=== PATIENT | female | born 1940 | race Caucasian/White ===

== ENCOUNTER 2019-08-07 13:20 | Day surgery (SDC) | payer MEDICARE, BC ==
[~2019-08-07] VITALS: Ht 165.1 cm; Wt 87.8 kg
[~2019-08-07 13:20] MED LIST: K and/or MAG REPLACEMENT MC SCH
[2019-08-07 13:55] VITALS: BP 136/72
[2019-08-07] MEDS ORDERED: CLIN150C2 PO (14:14)
[2019-08-07] MEDS ORDERED: ASPI-611 PO (14:14)
[2019-08-07] MEDS ORDERED: FISH OIL (14:14)
[2019-08-07] MEDS ORDERED: MAGNESIUM (14:14)
[2019-08-07] MEDS ORDERED: TRAZ-251 PO (14:14)
[2019-08-07] MEDS ORDERED: SIMV-45 PO (14:14)
[2019-08-07] MEDS ORDERED: HYDR25TA4 PO (14:14)
[2019-08-07] MEDS ORDERED: NITR0.4T48 SL (14:14)
[2019-08-07] MEDS ORDERED: CITA20TA17 (14:14)
[2019-08-07] MEDS ORDERED: FURO20TA4 PO (14:14)
[2019-08-07] MEDS ORDERED: ASCO500C15 PO (14:14)
[2019-08-07] MEDS ORDERED: ATEN50TA PO (14:14)
[2019-08-07] MEDS ORDERED: DOXY-1 (14:14)
[2019-08-07] MEDS ORDERED: MELA5TAB21 (14:14)
[2019-08-07] MEDS ORDERED: POTA20TA10 PO (14:14)
[2019-08-07] MEDS ORDERED: MULT-1085 PO (14:14)
[2019-08-07] MEDS ORDERED: CARV3.122 PO (14:14)
[2019-08-07 14:17] LABS: BASOPHILS % (AUTO) 0.6 % (0-1); EOSINOPHILS # (AUTO) 0.1 X10'3 (0-0.9); EOSINOPHILS % (AUTO) 2.3 % (0-6); HEMATOCRIT 35.6 % (35.0-45.0); HEMOGLOBIN 11.6 g/dl (12.0-16.0); LYMPHOCYTES # (AUTO) 1.3 X10'3 (1.1-4.8); LYMPHOCYTES % (AUTO) 22.5 % (21-51); MEAN CORPUSCULAR HEMOGLOBIN 27.7 PG (27.0-31.0); MEAN CORPUSCULAR HGB CONC 32.6 g/dL (33.0-36.5); MEAN PLATELET VOLUME 8.2 FL (7.4-10.4); MONOCYTES # (AUTO) 0.7 X10'3 (0-0.9); MONOCYTES % (AUTO) 11.8 % (2-12); NEUTROPHILS # (AUTO) 3.7 X10'3 (1.8-7.7); NEUTROPHILS % (AUTO) 62.8 % (42-75); PLATELET COUNT 124 X10'3 (140-440); RED BLOOD COUNT 4.19 X10'6 (4.20-5.60); RED CELL DISTRIBUTION WIDTH 18.7 % (11.5-14.5); WHITE BLOOD COUNT 5.9 X10'3 (4.5-11.0)
[2019-08-07 14:28] LABS: ALBUMIN 3.5 G/DL (3.4-5.0); ANION GAP 8 (8-16); BLOOD UREA NITROGEN 42 MG/DL (7-18); BUN/CREATININE RATIO 27.1 (6.6-38.0); CALCIUM 8.9 MG/DL (8.5-10.1); CHLORIDE 100 MMOL/L (99-107); CREATININE 1.55 MG/DL (0.40-0.90); GLUCOSE 86 MG/DL (70-104); MAGNESIUM 2.3 MG/DL (1.5-2.4); SODIUM 140 MMOL/L (135-145); TOTAL CARBON DIOXIDE 31.7 MMOL/L (24-32); eGFR 32 ML/MIN
[2019-08-07 14:34] LABS: ANISOCYTOSIS 2+; ELLIPTOCYTES 1+; PLATELET ESTIMATE DECREASED
[2019-08-07 14:35] LABS: BURR CELLS FEW
[2019-08-07 14:37] LABS: POTASSIUM 2.9 MMOL/L (3.5-5.1)
[2019-08-07] MEDS ORDERED: potassium Cl 20 mEq SR tablet PO PRN ×2 (14:40)
[2019-08-07] MEDS ORDERED: potassium CL 10mEq/100ml bag 100 ML IV PRN ×2 (14:40)
[2019-08-07] MEDS ORDERED: LIDOcaine 1% W/epiNEPHrine 1:100,000 20ml vial ONE ×2 (15:55→16:40)
[2019-08-07] MEDS ORDERED: midazolam 2 mg/2 ml injection ONE ×4 (15:55→17:23)
[2019-08-07] MEDS ORDERED: fentaNYL/PF 50MCG/1 ML 2ML syringe ONE (15:55)
[2019-08-07] MEDS ORDERED: vancomycin 1,000mg inj ONE (15:55)
[2019-08-07] MEDS ORDERED: ceFAZolin 1000mg inj ONE (16:30)
[2019-08-07] MEDS ORDERED: iohexol 350 MG/ML 50ML vial IV ONE (16:38)
[2019-08-07] MEDS ORDERED: diphenhydrAMINE 50 mg/ml inj ONE (16:39)
[2019-08-07 18:18] VITALS: BP 100/64
[2019-08-07 18:30] VITALS: BP 102/64
[2019-08-07 18:46] VITALS: BP 103/61
[2019-08-07 19:00] VITALS: BP 95/50
[2019-08-07 19:13] VITALS: BP 103/66
== END 2019-08-07 19:46 | disposition home or self-care (01) ==
LOC: SSTAY O 13:20
PROVIDERS: ATTEND Internal Medicine Cardiovascular Disease
DX: I25.5 Ischemic cardiomyopathy (principal); I44.7 Left bundle-branch block, unspecified; I25.10 Atherosclerotic heart disease of native coronary artery without angina pectoris; E78.5 Hyperlipidemia, unspecified; I11.0 Hypertensive heart disease with heart failure; I50.23 Acute on chronic systolic (congestive) heart failure; Z85.038 Personal history of other malignant neoplasm of large intestine; Z95.1 Presence of aortocoronary bypass graft; Z79.899 Other long term (current) drug therapy; Z98.41 Cataract extraction status, right eye; Z98.42 Cataract extraction status, left eye; Z88.8 Allergy status to other drugs, medicaments and biological substances; Z88.2 Allergy status to sulfonamides; Z88.1 Allergy status to other antibiotic agents; Z88.0 Allergy status to penicillin
CPT/HCPCS: 33225; 33249; 36415; 71045; 80048; 83735; 85025; 85610; 93005; 99152; 99153; C1769; C1882; C1887; C1894; C1895; C1900; J0690; J1200; J2250; J3010; J3370; J7050; Q9967; A4565; A4620; C1777